=== PATIENT | male | born 1960 | race Caucasian/White ===

== ENCOUNTER 2021-08-02 15:37 | Observation (INO) ==
[2021-08-02] MEDS ORDERED: 0.9 % Sodium Chloride 1,000 ML IVC ONE ×2 (16:26→18:00)
[2021-08-02 16:33] LABS: Basophils % 0.6 %; Eosinophils # 0.1 K/mcL (0.0-0.6); Eosinophils % 1.3 %; Hemoglobin 16.9 g/dL (12.9-16.9); Immature Granulocytes % 0.3 % (0-4); Lymphocytes # 1.4 K/mcL (0.6-4.6); Lymphocytes % 20.6 %; Mean Corpuscular HGB Conc 32.5 g/dL (31.6-35.5); Mean Corpuscular Hemoglobin 25.2 pg (28.0-33.3); Mean Corpuscular Volume 77.6 fL (83.0-100.0); Mean Platelet Volume 11.4 fL (9.4-12.4); Monocytes # 0.6 K/mcL (0.0-1.3); Monocytes % 8.4 %; Neutrophils # 4.8 K/mcL (1.6-8.9); Platelet Count 205 K/mcL (140-400); Red Cell Distribution Width 14.6 % (11.5-14.5); Segmented Neutrophils % 68.8 %
[2021-08-02 16:37] LABS: VBG HCO3 22 mEq/L (21-27); VBG PCO2 41 mmHg (41-51); VBG PH 7.34 pH Units (7.32-7.42); VBG PO2 54 mmHg (25-50)
[2021-08-02 16:47] LABS: Bilirubin,Urine Negative (Negative); Blood,Urine Small (Negative); Clarity,Urine Clear (Clear); Color,Urine Yellow (Yellow); Glucose,Urine (UA) >=1000 mg/dL (Normal); Ketones,Urine 15 mg/dL (Negative); Leukocyte Esterase,Urine Negative (Negative); Nitrite,Urine Negative (Negative); Protein,Urine Negative (Neg-Trace); Urobilinogen,Urine Normal (Normal)
[2021-08-02] MEDS ORDERED: Insulin Regular, Human 100 UNIT/ML SUBQ ONE ×2 (16:50→18:00)
[2021-08-02 16:54] LABS: RBC,Urine 0-3 per hpf (0-3)
[2021-08-02 16:57] LABS: Alanine Aminotransferase 19 Units/L (7-52); Albumin 4.3 g/dL (3.5-5.7); Albumin/Globulin Ratio 1.4 (1.1-2.2); Alkaline Phosphatase 111 Units/L (34-104); Aspartate Amino Transferase 13 Units/L (13-39); BUN/Creatinine Ratio 19 (6-26); Bilirubin,Total 0.5 mg/dL (0.3-1.0); Blood Urea Nitrogen 23 mg/dL (8-23); Calcium 9.3 mg/dL (8.6-10.3); Carbon Dioxide 21 mEq/L (23-29); Chloride 89 mEq/L (98-107); Globulin 3.1 g/dL (2.4-3.5); Glucose 681 mg/dL (70-105); Osmolality,Calculated 292 (280-300); Potassium 4.7 mEq/L (3.5-5.1); Sodium 123 mEq/L (136-145); Total Protein 7.4 g/dL (6.4-8.9); eGFR For African Americans > 60 (> 60); eGFR For Non-African Americans > 60 (> 60)
[2021-08-02 19:55] LABS: BUN/Creatinine Ratio 21 (6-26); Blood Urea Nitrogen 19 mg/dL (8-23); Calcium 8.3 mg/dL (8.6-10.3); Carbon Dioxide 22 mEq/L (23-29); Chloride 100 mEq/L (98-107); Glucose 340 mg/dL (70-105); Osmolality,Calculated 286 (280-300); Potassium 3.8 mEq/L (3.5-5.1); Sodium 130 mEq/L (136-145); eGFR For African Americans > 60 (> 60); eGFR For Non-African Americans > 60 (> 60)
[2021-08-02] MEDS ORDERED: Dextrose 4 GM Chewable Tablets PO PRN ×4 (20:21→22:39)
[2021-08-02] MEDS ORDERED: *HR* Dextrose 50 % in Water (Syg) 50 ML SYRINGE IVP PRN ×2 (20:21→22:39)
[2021-08-02] MEDS ORDERED: D5% in Water 1,000 ML IVC PRN ×2 (20:21→22:39)
[2021-08-02] MEDS ORDERED: Naloxone 0.4 MG/ML INJ IVP PRN ×2 (20:24→22:39)
[2021-08-02] MEDS ORDERED: Insulin DETEMIR 100 UNIT/ML per UNIT SUBQ SCH (20:45)
[2021-08-02] MEDS ORDERED: Insulin LISPRO 300 UNITS/3 ML VIAL SUBQ SCH ×2 (21:00→23:45)
[2021-08-02] MEDS ORDERED: Insulin DETEMIR 100 UNIT/ML per UNIT SUBQ ONE (22:39)
[2021-08-03 07:17] VITALS: RESP 15; O2SAT 95
[2021-08-03] MEDS ORDERED: Insulin LISPRO 300 UNITS/3 ML VIAL SUBQ SCH (07:30)
[2021-08-03] MEDS: Insulin LISPRO 300 UNITS/3 ML VIAL SUBQ SCH ×3 (07:52→16:43)
[2021-08-03 09:04] LABS: Hematocrit 46.1 % (37.5-50.1); Mean Corpuscular HGB Conc 32.5 g/dL (31.6-35.5); Mean Corpuscular Hemoglobin 25.1 pg (28.0-33.3); Mean Corpuscular Volume 77.1 fL (83.0-100.0); Mean Platelet Volume 11.8 fL (9.4-12.4); Platelet Count 173 K/mcL (140-400); Red Blood Count 5.98 M/mcL (4.19-5.50); Red Cell Distribution Width 14.1 % (11.5-14.5); White Blood Count 6.4 K/mcL (4.3-11.1)
[2021-08-03 09:10] LABS: BUN/Creatinine Ratio 18 (6-26); Blood Urea Nitrogen 19 mg/dL (8-23); Calcium 8.2 mg/dL (8.6-10.3); Carbon Dioxide 25 mEq/L (23-29); Chloride 99 mEq/L (98-107); Glucose 445 mg/dL (70-105); Osmolality,Calculated 294 (280-300); Sodium 131 mEq/L (136-145); eGFR For African Americans > 60 (> 60); eGFR For Non-African Americans > 60 (> 60)
[2021-08-03 11:12] VITALS: BP 136/81; PULSE 74; TEMP 97.7
[2021-08-03] MEDS ORDERED: Insulin LISPRO 300 UNITS/3 ML VIAL SUBQ ONE (11:33)
[2021-08-03 14:12] LABS: Estimated Average Glucose 312 mg/dl; Hemoglobin A1C 12.5 %
[2021-08-03] MEDS ORDERED: Insulin DETEMIR 100 UNIT/ML X5UNITS SUBQ SCH ×2 (21:00)
== END 2021-08-03 17:30 | disposition home or self-care (01) ==
LOC: EMEROOPIK 15:37 → INPPIK 15:37 → SUATTDRO 21:06 → INPPIK 22:10
PROVIDERS: ADMIT Internal Medicine; ATTEND Family Medicine